=== PATIENT | male | born 1950 | race Two or more races ===

== ENCOUNTER 2018-04-15 07:00 | Day surgery (SDC) | payer OTHER ==
[~2018-04-15] VITALS: Ht 180.3 cm; Wt 95.3 kg
[~2018-04-15 07:00] MED LIST: LIPITOR80 MG; METFORMIN HCL500 MG
[2018-04-16] MEDS ORDERED: INTESTINEX680 M1 PO ×2 (08:58→09:03)
[2018-04-16] MEDS ORDERED: AMOX-CLAV 875-1 EACH PO ×2 (08:58→09:03)
[2018-04-16] MEDS ORDERED: PERCOCET 5-3251 EACH PO (08:59)
== END 2018-04-16 13:00 | disposition home or self-care (01) ==
LOC: CIR.AMB 07:00 → ER 11:28 → SEC-K 11:28 → O/R 11:28 → SEC-K 12:35 → EDSTATUS 20:45 → O/R 23:54 → MEDI 23:54 → O/R 04-16 10:59 → CIR.AMB 04-16 13:00
DX: K61.2 Anorectal abscess (principal); I10 Essential (primary) hypertension; E78.4 Other hyperlipidemia; K62.89 Other specified diseases of anus and rectum